=== PATIENT | female | born 1930 | race Caucasian/White ===

== ENCOUNTER 2019-06-05 02:36 | Inpatient (IN) | payer MEDICARE ==
[~2019-06-05] VITALS: Ht 165.1 cm; Wt 108.8 kg
[2019-06-09 06:43] VITALS: BP 120/81
== END 2019-06-09 13:15 | disposition short-term general hospital (02) | DRG 871 ==
LOC: ED 04:52 → EDIP 04:54 → 4NOR 05:55 → CCU 06-09 12:09
PROVIDERS: ADMIT Family Medicine; ATTEND Internal Medicine
PROC: 0T9B70Z Drainage of Bladder with Drainage Device, Via Natural or Artificial Opening (ICD-10-PCS; principal; 2019-06-05)
PROC: 3E03317 Introduction of Other Thrombolytic into Peripheral Vein, Percutaneous Approach (ICD-10-PCS; 2019-06-09)
DX: A41.9 Sepsis, unspecified organism (principal); I50.31 Acute diastolic (congestive) heart failure; J96.01 Acute respiratory failure with hypoxia; I63.512 Cerebral infarction due to unspecified occlusion or stenosis of left middle cerebral artery; I13.0 Hypertensive heart and chronic kidney disease with heart failure and stage 1 through stage 4 chronic kidney disease, or unspecified chronic kidney disease; D68.69 Other thrombophilia; N17.9 Acute kidney failure, unspecified; R47.01 Aphasia; B96.20 Unspecified Escherichia coli [E. coli] as the cause of diseases classified elsewhere; E03.9 Hypothyroidism, unspecified; E78.5 Hyperlipidemia, unspecified; G89.29 Other chronic pain; H35.30 Unspecified macular degeneration; I48.2 Chronic atrial fibrillation; K21.9 Gastro-esophageal reflux disease without esophagitis; K43.9 Ventral hernia without obstruction or gangrene; N18.9 Chronic kidney disease, unspecified; N20.0 Calculus of kidney; N30.90 Cystitis, unspecified without hematuria; I67.1 Cerebral aneurysm, nonruptured; Z16.12 Extended spectrum beta lactamase (ESBL) resistance; N28.1 Cyst of kidney, acquired; Z96.643 Presence of artificial hip joint, bilateral; F03.90 Unspecified dementia, unspecified severity, without behavioral disturbance, psychotic disturbance, mood disturbance, and anxiety; G47.30 Sleep apnea, unspecified; Z79.01 Long term (current) use of anticoagulants; Z87.442 Personal history of urinary calculi; Z88.0 Allergy status to penicillin; Z88.2 Allergy status to sulfonamides; Z88.8 Allergy status to other drugs, medicaments and biological substances
CPT/HCPCS: 36415; 70450; 70496; 70498; 70551; 71045; 74177; 80047; 80048; 80053; 81001; 82962; 83605; 83690; 83735; 83880; 84100; 84145; 84443; 84484; 85025; 87040; 87077; 87086; 87184; 87186; 93005; 93306; 96374; 96375; 99285; G0378; J0456; J0696; J1335; J2997; Q9967; J1940; J7050